=== PATIENT | male | born 1940 | race Caucasian/White ===

== ENCOUNTER 2017-04-13 21:19 | Emergency (ER) | payer BC, MEDICARE ==
[~2017-04-13] VITALS: Ht 175.3 cm; Wt 88.6 kg
[2017-04-13] MEDS ORDERED: INSUH10VL SC (21:34)
[2017-04-13] MEDS ORDERED: AVOD0.5C PO (21:34)
[2017-04-13] MEDS ORDERED: pancrelipase PO (21:34)
[2017-04-13] MEDS ORDERED: PRESCAP6 PO (21:34)
[2017-04-13] MEDS ORDERED: NEXI40CA PO (21:34)
[2017-04-13] MEDS ORDERED: INSULANT SC (21:34)
[2017-04-13] MEDS ORDERED: GLUC1CAP10 PO (21:34)
[2017-04-13] MEDS ORDERED: MECLIZINE 25 MG TABLET PO ONE (22:45)
[2017-04-13 23:09] LABS: BASO # 0.1 K/mm3 (0.0-0.2); BASO % 1.2 % (0.0-1.0); EOS # 0.2 K/mm3 (0.0-0.50); EOS % 3.1 % (0.0-3.0); LARGE UNSTAINED CELL # 0.1 K/mm3 (0.0-0.4); LARGE UNSTAINED CELL % 1.9 % (0.0-4.0); LYMPH # 1.6 K/mm3 (1.5-4.5); LYMPH % 28.4 % (24.0-44.0); MEAN CORPUSCULAR HEMOGLOBIN 29.7 pg (27.0-33.0); MEAN CORPUSCULAR HGB CONC 33.3 g/dl (32.0-36.5); MEAN CORPUSCULAR VOLUME 89.2 fl (80.0-96.0); MONO # 0.5 K/mm3 (0.0-0.8); MONO % 8.8 % (0.0-5.0); NEUTROPHILS # 3.1 K/mm3 (1.8-7.7); NEUTROPHILS % 56.6 % (36.0-66.0); PLATELET COUNT, AUTOMATED 230 k/mm3 (150-450); RED CELL DISTRIBUTION WIDTH 15.3 % (11.5-14.5); WHITE BLOOD COUNT 5.4 K/mm3 (4.0-10.0)
[2017-04-13 23:38] LABS: ANION GAP 4 MEQ/L (8-16); BLOOD UREA NITROGEN 17 MG/DL (7-18); CALCIUM LEVEL 8.9 MG/DL (8.8-10.2); CARBON DIOXIDE LEVEL 29 MEQ/L (21-32); CHLORIDE LEVEL 103 MEQ/L (98-107); CREATININE FOR GFR 1.31 MG/DL (0.70-1.30); GLOMERULAR FILTRATION RATE 56.3 (>42); GLUCOSE, FASTING 356 MG/DL (83-110); POTASSIUM SERUM 4.3 MEQ/L (3.5-5.1); SODIUM LEVEL 136 MEQ/L (136-145)
--- NOTE | 2017-04-13 23:50 | REPUSA ---
CT of the head Clinical history: dizziness. Comparison: 04/06/2016. Protocol: Multiple axial CT images obtained with 5 mm slice thickness were obtained through the head without administration of contrast. Findings: The ventricles and sulci are symmetric bilaterally. There are periventricular areas of low attenuation throughout the deep white matter. There is no evidence of acute hemorrhage or infarct. Th ere is no midline shift, mass effect, or extra-axial fluid collection. The osseous structures are unr emarkable. The visualized paranasal sinuses and mastoid air cells are clear. Impression: No acute hemorrhage or infarct. 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
[2017-04-14 01:02] VITALS: O2SAT 99
[2017-04-14] MEDS ORDERED: hydrALAZINE INJ 20 MG/ML VIAL IV ONE (01:15)
[2017-04-14 01:56] VITALS: BP 174/82
[2017-04-14] MEDS ORDERED: METAL LOCK LOOP XX ONE (02:49)
[2017-04-14 03:16] VITALS: BP 171/82
[2017-04-14] MEDS ORDERED: NORV5TAB PO (03:30)
[2017-04-14] MEDS ORDERED: MECL-68 PO (03:31)
--- NOTE | 2017-04-14 08:17 | ECGEPIP ---
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
== END 2017-04-14 03:44 | disposition home or self-care (01) ==
LOC: M ED 21:19
DX: R42 Dizziness and giddiness (principal); I10 Essential (primary) hypertension; E11.9 Type 2 diabetes mellitus without complications; Z79.4 Long term (current) use of insulin; Z79.899 Other long term (current) drug therapy